=== PATIENT | female | born 1960 | race Caucasian/White ===

== ENCOUNTER 2017-12-06 00:12 | Emergency (ER) | payer BC ==
[~2017-12-06] VITALS: Ht 160 cm; Wt 50.0 kg
[~2017-12-06 00:12] MED LIST: NEXIUM20 MG PO; NO HOME MEDS; VALIUM10 MG PO; VALIUM5 MG PO; ZOFRAN ODT8 MG PO
[2017-12-06] MEDS ORDERED: NORCO 5/3251 TABLET PO (01:16)
[2017-12-06 01:30] VITALS: BP 115/87
== END 2017-12-06 01:30 | disposition home or self-care (01) ==
LOC: EME 00:12 → RME 00:12
DX: S92.902A Unspecified fracture of left foot, initial encounter for closed fracture (principal); S93.402A Sprain of unspecified ligament of left ankle, initial encounter; W10.9XXA Fall (on) (from) unspecified stairs and steps, initial encounter; F17.200 Nicotine dependence, unspecified, uncomplicated; Z88.8 Allergy status to other drugs, medicaments and biological substances
CPT/HCPCS: 73610; 73630; 99281; 99283